=== PATIENT | male | born 1955 | race African-American/Black ===

== ENCOUNTER 2017-05-15 15:09 | Inpatient (IN) ==
[2017-05-15] MEDS ORDERED: SODIUM CHLORIDE 0.9% 1,000 ML IV STA (16:01)
[2017-05-15 16:34] LABS: Basophils % 0.1 % (0.0-0.8); Eosinophils # 0.1 10*3/uL (0.0-0.87); Eosinophils % 2.1 % (0.00-10.9); Immature Granulocytes % 0.3 %; Immature Granulocytes Absolute 0.02 #; Lymphocytes # 1.6 10*3/uL (1.4-4.0); Lymphocytes % 24.2 % (21.2-54.2); Mean Corpuscular HGB Conc 27.5 GM/DL (32-36); Mean Corpuscular Hemoglobin 18 PG (27-34); Mean Corpuscular Volume 66.8 FL (87-102); Monocytes # 0.7 10*3/uL (0.11-0.8); Monocytes % 9.6 % (1.7-12.7); NRBC # 0.07 10*3/uL; Neutrophils # 4.3 10*3/uL (1.4-7.4); Neutrophils % 63.7 % (38.7-73.9); Platelet Count 481 T/CUMM (130-400); Red Blood Count 1.96 MC/CUMM (3.8-5.5); Red Cell Distribution Width 25.7 % (9.3-17.3); White Blood Count 6.8 T/CUMM (4-12)
[2017-05-15 16:39] LABS: Hemoglobin 3.6 GM/DL (14.0-18.0)
[2017-05-15 16:40] LABS: Hematocrit 13.1 VOL% (42.0-52.0)
[2017-05-15 16:54] LABS: INR 1.1; PT Patient Result 11.8 SECS; Partial Thromboplastin Time 26.1 SECS (0-40)
[2017-05-15 17:01] LABS: Alanine Aminotransferase 34 U/L (16-61); Albumin 3.5 G/DL (3.4-5.0); Alkaline Phosphatase 76 U/L (45-117); Aspartate Amino Transferase 11 U/L (0-37); Bilirubin,Total < 0.39 MG/DL (0.2-1.0); Blood Urea Nitrogen 10 MG/DL (7-18); Calcium 8.6 MG/DL (8.5-10.1); Glucose 95 MG/DL (74-106); Osmolality,Calculated 275.5 MOS/KG (273-304); Potassium 4.5 MMOL/L (3.5-5.1); Sodium 139 MMOL/L (136-145); Total Protein 7.2 G/DL (6.4-8.3)
[2017-05-15] MEDS ORDERED: SODIUM CHLORIDE 0.9% 1,000 ML IV PRN (17:46)
[2017-05-15] MEDS ORDERED: PANTOPRAZOLE 40 MG VIAL IV STA (18:07)
[2017-05-15] MEDS ORDERED: PANTOPRAZOLE 40 MG VIAL IV ONE (18:17)
[2017-05-15] MEDS ORDERED: SODIUM CHLORIDE 0.9% 1,000 ML IV SCH (18:30)
[2017-05-15 19:23] LABS: Alanine Aminotransferase 34 U/L (16-61); Albumin 3.5 G/DL (3.4-5.0); Alkaline Phosphatase 73 U/L (45-117); Aspartate Amino Transferase 12 U/L (0-37); Bilirubin,Direct < 0.100 MG/DL (0.0-0.20); Bilirubin,Indirect 0.3 MG/DL (0.0-1.0); Bilirubin,Total < 0.39 MG/DL (0.2-1.0)
[2017-05-15 19:33] LABS: % Iron Saturation 2.4 % (18-50)
[2017-05-15] MEDS ORDERED: NICOTINE 21 MG/24 HR PATCH TRANSDERM PRN (20:25)
[2017-05-16 05:56] LABS: Albumin 3.1 G/DL (3.4-5.0); Bilirubin,Total 0.7 MG/DL (0.2-1.0); Calcium 8.5 MG/DL (8.5-10.1); Osmolality,Calculated 280.1 MOS/KG (273-304); Potassium 4.7 MMOL/L (3.5-5.1); Total Protein 6.4 G/DL (6.4-8.3)
[2017-05-16 06:24] LABS: Troponin I Only 0.018 NG/ML (0.00-0.045)
[2017-05-16 06:32] LABS: Basophils % 0.6 % (0.0-0.8); Eosinophils # 0.1 10*3/uL (0.0-0.87); Eosinophils % 1.8 % (0.00-10.9); Hematocrit 19.5 VOL% (42.0-52.0); Immature Granulocytes % 0.6 %; Immature Granulocytes Absolute 0.04 #; Lymphocytes # 1.2 10*3/uL (1.4-4.0); Lymphocytes % 17.7 % (21.2-54.2); Mean Corpuscular HGB Conc 30.8 GM/DL (32-36); Mean Corpuscular Hemoglobin 22 PG (27-34); Mean Corpuscular Volume 72.5 FL (87-102); Monocytes # 0.6 10*3/uL (0.11-0.8); Monocytes % 8.8 % (1.7-12.7); NRBC # 0.09 10*3/uL; Neutrophils # 4.7 10*3/uL (1.4-7.4); Neutrophils % 70.5 % (38.7-73.9); Platelet Count 418 T/CUMM (130-400); Red Blood Count 2.69 MC/CUMM (3.8-5.5); Red Cell Distribution Width 24.7 % (9.3-17.3); White Blood Count 6.7 T/CUMM (4-12)
[2017-05-16 07:04] LABS: Hypochromasia 2+; Microcytosis 1+; Polychromasia Slight; Target Cells Slight
[2017-05-16 07:05] LABS: Platelet Estimate Adequate
[2017-05-16] MEDS: PANTOPRAZOLE 40 MG VIAL IV SCH (09:21)
[2017-05-16] MEDS ORDERED: SODIUM CHLORIDE 0.9% 1,000 ML IV PRN (10:35)
[2017-05-17 05:47] LABS: Basophils # 0.1 10*3/uL (0.0-0.2); Basophils % 1.2 % (0.0-0.8); Eosinophils # 0.3 10*3/uL (0.0-0.87); Eosinophils % 3.7 % (0.00-10.9); Hematocrit 26.3 VOL% (42.0-52.0); Immature Granulocytes % 0.5 %; Immature Granulocytes Absolute 0.04 #; Lymphocytes # 1.5 10*3/uL (1.4-4.0); Lymphocytes % 19.3 % (21.2-54.2); Mean Corpuscular HGB Conc 31.9 GM/DL (32-36); Mean Corpuscular Hemoglobin 24 PG (27-34); Mean Corpuscular Volume 73.5 FL (87-102); Mean Platelet Volume 8.9 FL (9.6-12.0); Monocytes # 0.7 10*3/uL (0.11-0.8); Monocytes % 9.8 % (1.7-12.7); NRBC # 0.11 10*3/uL; Neutrophils # 4.9 10*3/uL (1.4-7.4); Neutrophils % 65.5 % (38.7-73.9); Platelet Count 424 T/CUMM (130-400); Red Cell Distribution Width 22.9 % (9.3-17.3); White Blood Count 7.5 T/CUMM (4-12)
[2017-05-17 06:05] LABS: Red Blood Count 3.58 MC/CUMM (3.8-5.5)
[2017-05-17 06:06] LABS: Hemoglobin 8.4 GM/DL (14.0-18.0)
[2017-05-17 06:38] LABS: Hypochromasia 2+; Platelet Estimate Normal; Target Cells Few
[2017-05-17 06:48] LABS: Polychromasia Slight; Spherocytes Few
[2017-05-17] MEDS: MULTIVITAMIN (OCUVITE) TABLET PO SCH (09:08)
[2017-05-17] MEDS: FOLIC ACID 1 MG TABLET PO SCH (09:08)
[2017-05-17] MEDS: THIAMINE 100 MG TABLET PO SCH (09:09)
[2017-05-17] MEDS: PANTOPRAZOLE 40 MG VIAL IV SCH (09:47)
[2017-05-17] MEDS ORDERED: POLYETHYLENE GLYCOL POWDER 255 GM BOTTLE PO ONE (18:00)
[2017-05-17] MEDS ORDERED: INFLUENZA VIRUS VACCINE 0.5 ML SYRINGE IM ONE (20:38)
[2017-05-18 04:38] LABS: Basophils # 0.1 10*3/uL (0.0-0.2); Basophils % 1.2 % (0.0-0.8); Eosinophils # 0.2 10*3/uL (0.0-0.87); Eosinophils % 3.3 % (0.00-10.9); Hematocrit 25.9 VOL% (42.0-52.0); Hemoglobin 7.9 GM/DL (14.0-18.0); Immature Granulocytes % 0.3 %; Immature Granulocytes Absolute 0.02 #; Lymphocytes # 1.6 10*3/uL (1.4-4.0); Lymphocytes % 24.3 % (21.2-54.2); Mean Corpuscular HGB Conc 30.5 GM/DL (32-36); Mean Corpuscular Hemoglobin 23 PG (27-34); Mean Corpuscular Volume 75.1 FL (87-102); Mean Platelet Volume 9.3 FL (9.6-12.0); Monocytes # 0.8 10*3/uL (0.11-0.8); Monocytes % 12.3 % (1.7-12.7); NRBC # 0.04 10*3/uL; Neutrophils # 3.8 10*3/uL (1.4-7.4); Neutrophils % 58.6 % (38.7-73.9); Platelet Count 410 T/CUMM (130-400); Red Blood Count 3.45 MC/CUMM (3.8-5.5); Red Cell Distribution Width 23.8 % (9.3-17.3); White Blood Count 6.4 T/CUMM (4-12)
[2017-05-18 05:35] LABS: Bilirubin,Total 0.6 MG/DL (0.2-1.0); Calcium 8.6 MG/DL (8.5-10.1); Osmolality,Calculated 276.4 MOS/KG (273-304); Phosphorous 3.8 MG/DL (2.5-4.9); Potassium 4.2 MMOL/L (3.5-5.1); Total Protein 6.3 G/DL (6.4-8.3)
[2017-05-18] MEDS ORDERED: MAGNESIUM CITRATE 300 ML BOTTLE PO ONE (06:00)
[2017-05-18 06:40] LABS: Macrocytosis 1+; Polychromasia Slight; Spherocytes Few
[2017-05-18] MEDS: FOLIC ACID 1 MG TABLET PO SCH (10:55)
[2017-05-18] MEDS: MULTIVITAMIN (OCUVITE) TABLET PO SCH (10:56)
[2017-05-18] MEDS: PANTOPRAZOLE 40 MG VIAL IV SCH (10:56)
[2017-05-18] MEDS: THIAMINE 100 MG TABLET PO SCH (10:57)
[2017-05-18] MEDS ORDERED: LIDOCAINE 1% 5 ML VIAL ONE (13:36)
[2017-05-18] MEDS ORDERED: PROPOFOL 200 MG/20 ML VIAL IV ONE (13:36)
[2017-05-18] MEDS ORDERED: SODIUM CHLORIDE 0.9% 1,000 ML IV PRN (15:06)
[2017-05-18] MEDS: IRON (CARBONYL) 45 MG TABLET PO SCH (21:40)
[2017-05-19 03:23] LABS: Basophils # 0.1 10*3/uL (0.0-0.2); Basophils % 0.9 % (0.0-0.8); Eosinophils # 0.2 10*3/uL (0.0-0.87); Eosinophils % 2.9 % (0.00-10.9); Hematocrit 25.3 VOL% (42.0-52.0); Hemoglobin 7.9 GM/DL (14.0-18.0); Immature Granulocytes % 0.4 %; Immature Granulocytes Absolute 0.03 #; Lymphocytes # 1.4 10*3/uL (1.4-4.0); Lymphocytes % 17.9 % (21.2-54.2); Mean Corpuscular HGB Conc 31.2 GM/DL (32-36); Mean Corpuscular Hemoglobin 24 PG (27-34); Mean Corpuscular Volume 75.3 FL (87-102); Mean Platelet Volume 8.8 FL (9.6-12.0); Monocytes # 0.8 10*3/uL (0.11-0.8); Monocytes % 10.6 % (1.7-12.7); NRBC # 0.05 10*3/uL; Neutrophils # 5.1 10*3/uL (1.4-7.4); Neutrophils % 67.3 % (38.7-73.9); Platelet Count 384 T/CUMM (130-400); Red Blood Count 3.36 MC/CUMM (3.8-5.5); Red Cell Distribution Width 24.1 % (9.3-17.3); White Blood Count 7.5 T/CUMM (4-12)
[2017-05-19 03:54] LABS: Calcium 8.3 MG/DL (8.5-10.1); Osmolality,Calculated 277.4 MOS/KG (273-304)
[2017-05-19 05:20] LABS: Hypochromasia 2+; Microcytosis 1+
[2017-05-19 05:21] LABS: Ovalocytes Slight; Platelet Estimate Normal; Tear Drop Cells Slight
[2017-05-19] MEDS ORDERED: IRON SUCROSE 200 MG in SODIUM CHLORIDE 0.9% 100 ML IV ONE (08:00)
[2017-05-19 08:14] VITALS: BP 141/69
[2017-05-19] MEDS: IRON (CARBONYL) 45 MG TABLET PO SCH (09:42)
[2017-05-19] MEDS: MULTIVITAMIN (OCUVITE) TABLET PO SCH (09:42)
[2017-05-19] MEDS: PANTOPRAZOLE 40 MG VIAL IV SCH (09:43)
[2017-05-19] MEDS: FOLIC ACID 1 MG TABLET PO SCH (09:43)
[2017-05-19] MEDS: THIAMINE 100 MG TABLET PO SCH (09:43)
== END 2017-05-19 11:28 | disposition home or self-care (01) | DRG 812 ==
LOC: N.ED 15:09 → N.EDINP 17:29 → N.ICU 20:53 → N.4E 05-16 12:30
PROVIDERS: ADMIT Internal Medicine; ATTEND Internal Medicine

== ENCOUNTER 2021-03-08 11:39 | Inpatient (IN) ==
[2021-03-08 12:16] LABS: Basophils % 0.4 % (0.0-0.8); Eosinophils # 0.1 10*3/uL (0.0-0.87); Eosinophils % 1.4 % (0.00-10.9); Hematocrit 18.7 VOL% (42.0-52.0); Immature Granulocytes % 0.6 %; Immature Granulocytes Absolute 0.04 #; Lymphocytes # 1.4 10*3/uL (1.4-4.0); Lymphocytes % 19.3 % (21.2-54.2); Mean Corpuscular HGB Conc 26.2 GM/DL (32-36); Mean Corpuscular Volume 65.6 FL (87-102); Mean Platelet Volume 8.7 FL (9.6-12.0); Monocytes % 7.4 % (1.7-12.7); NRBC # 0.07 10*3/uL; Neutrophils % 70.9 % (38.7-73.9); Platelet Count 504 T/CUMM (130-400); Red Blood Count 2.85 MC/CUMM (3.8-5.5); Red Cell Distribution Width 21.2 % (9.3-17.3); White Blood Count 7.2 T/CUMM (4-12)
[2021-03-08 12:20] LABS: Hemoglobin 4.9 GM/DL (14.0-18.0)
[2021-03-08 12:22] LABS: PT Patient Result 11.2 SECS (10.5-12.0); Partial Thromboplastin Time 26.7 SECS (23.9-33.8)
[2021-03-08 12:34] LABS: Alanine Aminotransferase 10 U/L (16-61); Albumin 3.4 G/DL (3.4-5.0); Alkaline Phosphatase 60 U/L (45-117); Aspartate Amino Transferase 10 U/L (0-37); Bilirubin,Total < 0.39 MG/DL (0.20-1.00); Blood Urea Nitrogen 9 MG/DL (7-18); Calcium 8.7 MG/DL (8.5-10.1); Carbon Dioxide 22 MMOL/L (21-32); Estimated Glom Filtration Rate 76 ML/MIN; Glucose 87 MG/DL (74-106); Osmolality,Calculated 278.3 MOS/KG (273-304); Sodium 141 MMOL/L (136-145); Total Protein 7.8 G/DL (6.4-8.2)
[2021-03-08] MEDS ORDERED: SODIUM CHLORIDE 0.9% 1,000 ML IV PRN (13:10)
[2021-03-08] MEDS ORDERED: DEXTROSE 50% 25 GM/50 ML VIAL IV ONE (13:21)
[2021-03-08] MEDS ORDERED: GLUCAGON 1 MG VIAL IM PRN (14:03)
[2021-03-08] MEDS ORDERED: DEXTROSE 50% 25 GM/50 ML VIAL IV PRN (14:03)
[2021-03-08] MEDS ORDERED: ONDANSETRON 4 MG/2 ML VIAL IV PRN (14:03)
[2021-03-08 14:32] LABS: % Iron Saturation 2.8 % (18-50)
[2021-03-08 14:39] LABS: Folate 23.72 NG/ML (5.38-24.0)
[2021-03-08 14:45] LABS: Folate 23.72 NG/ML (5.38-24.0); Vitamin B12 688 PG/ML (211-911)
[2021-03-08] MEDS ORDERED: hydrALAZINE 20 MG/1 ML VIAL IV PRN (16:53)
[2021-03-08] MEDS: PANTOPRAZOLE INJ 200 MG in SODIUM CHLORIDE 0.9% 250 ML IV SCH (16:56)
[2021-03-08] MEDS: ATORVASTATIN 40 MG TABLET PO SCH (20:32)
[2021-03-08 23:23] LABS: Basophils # 0.1 10*3/uL (0.0-0.2); Basophils % 0.8 % (0.0-0.8); Eosinophils # 0.1 10*3/uL (0.0-0.87); Eosinophils % 1.7 % (0.00-10.9); Hematocrit 24.8 VOL% (42.0-52.0); Immature Granulocytes % 0.3 %; Immature Granulocytes Absolute 0.02 #; Lymphocytes # 1.4 10*3/uL (1.4-4.0); Lymphocytes % 18.1 % (21.2-54.2); Mean Corpuscular HGB Conc 28.6 GM/DL (32-36); Mean Corpuscular Volume 70.9 FL (87-102); Mean Platelet Volume 8.8 FL (9.6-12.0); Monocytes % 10.3 % (1.7-12.7); NRBC # 0.04 10*3/uL; Neutrophils % 68.8 % (38.7-73.9); Platelet Count 422 T/CUMM (130-400); Red Cell Distribution Width 25.2 % (9.3-17.3); White Blood Count 7.7 T/CUMM (4-12)
[2021-03-08 23:26] LABS: Hemoglobin 7.1 GM/DL (14.0-18.0)
[2021-03-09 00:25] LABS: Sedimentation Rate-Westergren 34 MM/HR (0-20)
[2021-03-09] MEDS: SODIUM CHLORIDE 0.9% 1,000 ML IV SCH ×4 (00:47→15:33)
[2021-03-09 00:48] LABS: Platelet Estimate Normal
[2021-03-09 00:49] LABS: Hypochromasia 2+
[2021-03-09 00:50] LABS: Reactive Lymphocytes 1+
[2021-03-09 05:36] LABS: Basophils # 0.1 10*3/uL (0.0-0.2); Basophils % 0.8 % (0.0-0.8); Eosinophils # 0.2 10*3/uL (0.0-0.87); Eosinophils % 1.9 % (0.00-10.9); Hematocrit 24.8 VOL% (42.0-52.0); Hemoglobin 7.3 GM/DL (14.0-18.0); Immature Granulocytes % 0.4 %; Immature Granulocytes Absolute 0.03 #; Mean Corpuscular HGB Conc 29.4 GM/DL (32-36); Mean Corpuscular Volume 70.7 FL (87-102); Mean Platelet Volume 9.2 FL (9.6-12.0); Monocytes % 7.5 % (1.7-12.7); NRBC # 0.05 10*3/uL; Neutrophils % 76.4 % (38.7-73.9); Platelet Count 447 T/CUMM (130-400); Red Blood Count 3.51 MC/CUMM (3.8-5.5); Red Cell Distribution Width 25.2 % (9.3-17.3)
[2021-03-09 05:58] LABS: Hypochromasia 2+; Microcytosis 2+
[2021-03-09 05:59] LABS: Platelet Estimate Increased; Risk Ratio 2.55; VLDL Cholesterol 19.2 MG/DL
[2021-03-09 06:10] LABS: Calcium 8.3 MG/DL (8.5-10.1); Osmolality,Calculated 277.3 MOS/KG (273-304); Potassium 3.9 MMOL/L (3.5-5.1); Thyroid Stimulating Hormone 3.14 uIU/ml (0.358-3.74)
[2021-03-09 08:00] LABS: Hematocrit 24.9 VOL% (42.0-52.0); Hemoglobin 7.5 GM/DL (14.0-18.0)
[2021-03-09] MEDS ORDERED: LACTATED RINGERS 1,000 ML IV SCH (08:00)
[2021-03-09] MEDS: FERRIC GLUCONATE COMPLEX 125 MG in SODIUM CHLORIDE 0.9% 100 ML IV SCH (09:35)
[2021-03-09] MEDS ORDERED: propofoL 200 MG/20 ML VIAL IV ONE (14:16)
[2021-03-09] MEDS ORDERED: LIDOCAINE 2% 5 ML VIAL ONE (14:16)
[2021-03-09 14:26] LABS: Hematocrit 25.3 VOL% (42.0-52.0); Hemoglobin 7.5 GM/DL (14.0-18.0)
[2021-03-09] MEDS: PANTOPRAZOLE INJ 200 MG in SODIUM CHLORIDE 0.9% 250 ML IV SCH (15:34)
[2021-03-09 20:10] LABS: Hematocrit 26.3 VOL% (42.0-52.0); Hemoglobin 7.4 GM/DL (14.0-18.0)
[2021-03-09] MEDS: ATORVASTATIN 40 MG TABLET PO SCH (21:12)
[2021-03-10] MEDS: PANTOPRAZOLE INJ 200 MG in SODIUM CHLORIDE 0.9% 250 ML IV SCH (00:52)
[2021-03-10] MEDS: SODIUM CHLORIDE 0.9% 1,000 ML IV SCH ×2 (05:30→06:18)
[2021-03-10 06:25] LABS: Calcium 8.5 MG/DL (8.5-10.1); Osmolality,Calculated 279.1 MOS/KG (273-304)
[2021-03-10] MEDS: FERRIC GLUCONATE COMPLEX 125 MG in SODIUM CHLORIDE 0.9% 100 ML IV SCH (08:04)
[2021-03-10 08:40] LABS: Hemoglobin A1 (Alkaline) 98.1 % (96.5-98.5); Hemoglobin A2 (Alkaline) 1.9 % (1.5-3.5)
[2021-03-10] MEDS ORDERED: SODIUM CHLORIDE 0.9% 1,000 ML IV PRN (08:56)
[2021-03-10 09:05] LABS: Basophils # 0.1 10*3/uL (0.0-0.2); Basophils % 0.7 % (0.0-0.8); Eosinophils # 0.1 10*3/uL (0.0-0.87); Eosinophils % 1.9 % (0.00-10.9); Hematocrit 27.9 VOL% (42.0-52.0); Immature Granulocytes % 0.4 %; Immature Granulocytes Absolute 0.03 #; Lymphocytes % 12.9 % (21.2-54.2); Mean Corpuscular HGB Conc 28.7 GM/DL (32-36); Mean Corpuscular Volume 71.4 FL (87-102); Mean Platelet Volume 8.9 FL (9.6-12.0); Monocytes % 7.8 % (1.7-12.7); NRBC # 0.07 10*3/uL; Neutrophils % 76.3 % (38.7-73.9); Platelet Count 437 T/CUMM (130-400); Red Blood Count 3.91 MC/CUMM (3.8-5.5); Red Cell Distribution Width 25.5 % (9.3-17.3); White Blood Count 7.5 T/CUMM (4-12)
[2021-03-10] MEDS: PANTOPRAZOLE 40 MG TABLET PO SCH (09:27)
[2021-03-10] MEDS: amLODIPine 10 MG TABLET PO SCH (09:27)
[2021-03-10] MEDS ORDERED: BISACODYL 5 MG TABLET PO ONE (17:00)
[2021-03-10] MEDS ORDERED: POLYETHYLENE GLYCOL POWDER 255 GM BOTTLE PO ONE (18:00)
[2021-03-10] MEDS: ATORVASTATIN 40 MG TABLET PO SCH (20:16)
[2021-03-11] MEDS ORDERED: POLYETHYLENE GLYCOL POWDER 255 GM BOTTLE PO ONE (05:00)
[2021-03-11 05:44] LABS: Basophils # 0.1 10*3/uL (0.0-0.2); Basophils % 1.1 % (0.0-0.8); Eosinophils # 0.2 10*3/uL (0.0-0.87); Eosinophils % 3.3 % (0.00-10.9); Hematocrit 29.8 VOL% (42.0-52.0); Hemoglobin 8.9 GM/DL (14.0-18.0); Immature Granulocytes % 0.5 %; Immature Granulocytes Absolute 0.04 #; Lymphocytes # 1.2 10*3/uL (1.4-4.0); Lymphocytes % 15.9 % (21.2-54.2); Mean Corpuscular HGB Conc 29.9 GM/DL (32-36); Mean Corpuscular Volume 73.4 FL (87-102); Mean Platelet Volume 8.8 FL (9.6-12.0); Monocytes % 9.2 % (1.7-12.7); NRBC # 0.06 10*3/uL; Platelet Count 375 T/CUMM (130-400); Red Blood Count 4.06 MC/CUMM (3.8-5.5); Red Cell Distribution Width 26.7 % (9.3-17.3); White Blood Count 7.3 T/CUMM (4-12)
[2021-03-11 05:57] LABS: Calcium 9.1 MG/DL (8.5-10.1); Osmolality,Calculated 276.4 MOS/KG (273-304); Potassium 3.9 MMOL/L (3.5-5.1)
[2021-03-11 05:57] LABS: INR 1.1; PT Patient Result 12.1 SECS (10.5-12.0)
[2021-03-11 06:19] LABS: Hypochromasia 2+; Microcytosis 2+; Ovalocytes Few; Platelet Estimate Normal; Target Cells Slight
[2021-03-11] MEDS ORDERED: LACTATED RINGERS 1,000 ML IV SCH (08:00)
[2021-03-11] MEDS: FERRIC GLUCONATE COMPLEX 125 MG in SODIUM CHLORIDE 0.9% 100 ML IV SCH (09:16)
[2021-03-11] MEDS ORDERED: propofoL 200 MG/20 ML VIAL IV ONE ×3 (12:10→12:17)
[2021-03-11] MEDS ORDERED: LIDOCAINE 2% 5 ML VIAL ONE (12:17)
[2021-03-11] MEDS: PANTOPRAZOLE 40 MG TABLET PO SCH (13:40)
[2021-03-11] MEDS: amLODIPine 10 MG TABLET PO SCH (13:40)
[2021-03-11 13:44] VITALS: BP 158/63
== END 2021-03-11 14:50 | disposition home or self-care (01) | DRG 812 ==
LOC: N.ED 11:39 → N.EDINP 13:25 → N.5E 17:58
PROVIDERS: ADMIT Internal Medicine; ATTEND Internal Medicine